=== PATIENT | male | born 1980 | race Caucasian/White ===

== ENCOUNTER 2016-11-14 15:35 | Emergency (ER) | payer OTHER ==
[2016-11-14 15:42] VITALS: BP 131/71; PULSE 71; TEMP 98.6; BMI 24.2
[2016-11-14] MEDS ORDERED: KETOROLAC TROMETHAMINE 60 MG/2 ML VIAL IM ONE (16:43)
[2016-11-14] MEDS ORDERED: KETOROLAC TROMETHAMINE 60 MG/2 ML VIAL ONE (16:49)
--- NOTE | 2016-11-14 17:00 | PDOC ---
History of Present Illness - General Chief Complaint: Injury Stated Complaint: RT SWOLLEN FEET/ NUMBNESS Time Seen by Provider: 11/14/16 16:07 - History of Present Illness Initial Comments: 11/14/16 16:54 CHIEF COMPLAINT: trauma to R great toe HISTORY OF PRESENT ILLNESS: 35 yo with no PMH presents to fast track with injury to R great toe. 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 He states he went to a [facility] and was told that he had to go to the ER immediately. Per discharge papers from [facility], he was given a tetanus shot in the clinic. PAST MEDICAL HISTORY: Denies past medical history FAMILY HISTORY: Denies SOCIAL HISTORY: Lives at home with family. Occupation: construction. Denies tobacco, alcohol, illicit drug use. SURGICAL HISTORY: Denies ALLERGIES: No known drug allergies REVIEW OF SYSTEMS General/Constitutional: Denies fever or chills. Gastrointestinal: Denies nausea, vomiting, diarrhea or constipation. Musculoskeletal: Pain to right great toe s/p injury. Skin and breasts: Denies rash or easy bruising. PHYSICAL EXAM General Appearance: Well-appearing, appropriately dressed. No apparent distress. HEENT: EOMI, PERRLA, normal ENT inspection, normal voice, TMs normal, pharynx normal. No conjunctival pallor. No photophobia, scleral icterus. Respiratory/Chest: Lungs CTAB. Cardiovascular: RRR. S1, S2. Vascular Pulses: Dorsalis-Pedis (R): 2+, Dorsalis-Pedis (L): 2+ Musculoskeletal/Extremities: Impact injury to R great toe with superficial laceration, and edema. No tendon involvement, no loss of sensation to toes. FROM of all other extremities, normal capillary refill. Integumentary: Appropriate color, dry, warm. No cyanosis, erythema, jaundice or rash Neurologic: experimental mechanic outboard motors II-XII intact. Fully oriented, alert. Appropriate mood/affect. Motor strength 5/5. No appreciable EOM palsy, facial droop or sensory deficit. Past History - Past Medical History Allergies/Adverse Reactions: Allergies Allergy/AdvReac Type Severity Reaction Status Date / Time No Known Allergies Allergy Verified 11/14/16 15:38 Home Medications: Ambulatory Orders No Home Medications 0 mg PO DAILY 01/07/14 Clindamycin [Cleocin -] 300 mg PO QID #40 capsule 11/14/16 Oxycodone HCl [Roxicodone] 5 mg PO TID PRN #12 tablet MDD 3 tab 11/14/16 Other medical history: denies - Immunization History Immunization Up to Date: Yes - Psycho/Social/Smoking Cessation Hx Anxiety: No Suicidal Ideation: No Smoking History: Never smoked Number of Cigarettes Smoked Daily: 0 Hx Alcohol Use: Yes Drug/Substance Use Hx: No Substance Use Type: Alcohol *Physical Exam - Vital Signs Last Vital Signs Temp Pulse Resp BP Pulse Ox 98.6 F 71 20 131/71 97 11/14/16 15:38 11/14/16 15:38 11/14/16 15:38 11/14/16 15:38 11/14/16 15:38 ED Treatment Course - RADIOLOGY Radiology Studies Ordered: Category Date Time Status FOOT-RIGHT [RAD] Stat Radiology 11/14/16 16:40 Ordered - Medications Given in the ED: ED Medications Discontinued Medications Generic Name Dose Route Start Last Admin Trade Name Freq PRN Reason Stop Dose Admin Ketorolac Tromethamine 60 mg 11/14/16 16:43 11/14/16 16:52 Toradol Injection - IM 11/14/16 16:44 60 mg ONCE ONE Administration Medical Decision Making - Medical Decision Making 11/14/16 17:00 35 yo with no PMH presents to fast track with injury to R great toe. -Right foot x-ray -Toradol 60 mg IM 11/14/16 18:34 X-ray wet read suggestive of fracture to distal phalanx. 11/14/16 18:38 Wound irrigated with saline and covered with Telfa and Kerlix dressing. Wound superficial, no laceration repair indicated. Post op shoe placed. -Clindamycin 300 mg QID x 10 days rx sent for prophylaxis. -5 mg oxycodone prn pain Advised patient to follow up with orthopedics tomorrow. Advised patient to take medications as prescribed and of signs and symptoms for return to ER. Patient verbalized understanding and agrees to plan. *DC/Admit/Observation/Transfer Diagnosis at time of Disposition: Fractured great toe Qualifiers: Encounter type: initial encounter Fracture type: closed Phalanx: distal Fracture alignment: displaced Laterality: right Qualified Code(s): S92.421A - Displaced fracture of distal phalanx of right great toe, initial encounter for closed fracture - Discharge Dispostion Disposition: HOME Condition at time of disposition: Stable Admit: No - Prescriptions Prescriptions: Clindamycin [Cleocin -] 300 mg PO QID #40 capsule Oxycodone HCl [Roxicodone] 5 mg PO TID PRN #12 tablet MDD 3 tab PRN Reason: Pain - Referrals Referrals: Jerman Killian MD [Staff Physician] - - Patient Instructions Printed Discharge Instructions: DI for Toe Fracture Additional Instructions: Please take medications as prescribed and follow up with Dr. Killian TOMORROW. If you experience any increased redness, swelling, warmth, or streaking from the site of injury, please return to the ER immediately. - Post Discharge Activity Work/School Note: Back to Work
== END 2016-11-14 18:29 | disposition home or self-care (01) ==
LOC: JERFT 15:35
PROC: 3E0233Z Introduction of Anti-inflammatory into Muscle, Percutaneous Approach (ICD-10-PCS; principal; 2016-11-14)
DX: S92.401A Displaced unspecified fracture of right great toe, initial encounter for closed fracture (principal); W20.8XXA Other cause of strike by thrown, projected or falling object, initial encounter; Y93.89 Activity, other specified; Y92.89 Other specified places as the place of occurrence of the external cause; Y99.0 Civilian activity done for income or pay
CPT/HCPCS: 73630-TC-RT; 99281-25

== ENCOUNTER 2021-01-16 16:44 | Emergency (ER) | payer OTHER ==
[2021-01-16 17:01] VITALS: BP 123/72; PULSE 60; TEMP 98.5; BMI 27.4
[2021-01-16] MEDS ORDERED: DEXAMETHASONE SOD PHOSPHATE 10 MG/1 ML VIAL IM ONE (17:27)
[2021-01-16] MEDS ORDERED: DEXAMETHASONE SOD PHOSPHATE 10 MG/1 ML VIAL ONE (17:31)
== END 2021-01-16 17:43 | disposition home or self-care (01) ==
LOC: JER 16:44 → JERFT 16:44
PROC: 3E023GC Introduction of Other Therapeutic Substance into Muscle, Percutaneous Approach (ICD-10-PCS; principal; 2021-01-16)
DX: B86 Scabies (principal)
CPT/HCPCS: 99284-25; J1100